=== PATIENT | male | born 1955 | race Caucasian/White ===

== ENCOUNTER 2016-07-11 12:54 | Emergency (ER) | payer BC ==
[2016-07-11 13:05] VITALS: BP 174/80
[2016-07-11] MEDS ORDERED: predniSONE TAB* 20 MG PO ONE (13:14)
--- NOTE | 2016-07-11 13:18 | UC ---
Allergic Reaction HPI - HPI Summary HPI Summary: 61 yo male presents after eating avocodo. He has a allergy Ate it about 12:30 Took benadryl Used to have a epi pen but it He is asymptomatic - History of Current Complaint Chief Complaint: UC Stated Complaint: POSSIBLE ALLERGIC REACTION Time Seen by Provider: 07/11/16 13:09 Hx Obtained From: Patient Severity Currently: None Pain Intensity: 0 Pain Scale Used: 0-10 Numeric - Related Hx Possible Reaction To: Food - Allergies/Home Medications Allergies/Adverse Reactions: Allergies Allergy/AdvReac Type Severity Reaction Status Date / Time Avocado Allergy Rash And Verified 07/11/16 12:58 Itching Latex Allergy Unknown Verified 11/16/14 10:01 Reaction Details Penicillins [PCN] Allergy Unknown Verified 12/03/13 10:28 Reaction Details Home Medications: Home Medications diPHENhydraMINE PO* [Benadryl PO*] 50 mg PO Q6H PRN 07/11/16 [History Confirmed 07/11/16] PMH/Surg Hx/FS Hx/Imm Hx Previously Healthy: Yes Endocrine History Of: Denies: Diabetes Cardiovascular History Of: Reports: Hypertension Denies: Pacemaker/ICD Respiratory History Of: Reports: Asthma - CHILD - Surgical History Surgical History: None - Family History Known Family History: Positive: Hypertension - Social History Alcohol Use: Daily Alcohol Amount: 2 DRINKS OF SCOTCH DAILY Substance Use Type: None Smoking Status (MU): Former Smoker Have You Smoked in the Last Year: No - Immunization History Most Recent Influenza Vaccination: fall 2015 Review of Systems Constitutional: Negative Skin: Negative Eyes: Negative ENT: Negative Respiratory: Negative Cardiovascular: Negative Gastrointestinal: Negative Genitourinary: Negative Motor: Negative Neurovascular: Negative Musculoskeletal: Negative Neurological: Negative Psychological: Negative All Other Systems Reviewed And Are Negative: Yes Physical Exam Triage Information Reviewed: Yes Appearance: Well-Appearing, No Pain Distress, Well-Nourished Vital Signs: Initial Vital Signs Temp 97.4 F 07/11/16 13:01 Pulse 86 07/11/16 13:01 Resp 16 07/11/16 13:01 BP 174/80 07/11/16 13:01 Pulse Ox 99 07/11/16 13:01 Vital Signs Reviewed: Yes Eyes: Positive: Conjunctiva Clear ENT: Positive: Normal ENT inspection, Hearing grossly normal. Negative: Nasal congestion, Nasal drainage, Tonsillar swelling, Tonsillar exudate, Trismus, Muffled/hoarse voice Neck: Positive: Supple, Nontender, No Lymphadenopathy Respiratory: Positive: Lungs clear, Normal breath sounds, No respiratory distress, No accessory muscle use Cardiovascular: Positive: RRR, No Murmur Musculoskeletal: Positive: ROM Intact, No Edema Neurological: Positive: Alert, Muscle Tone Normal Psychological Exam: Normal Skin Exam: Normal Re-Evaluation - Re-Evaluation First Eval Re-Evaluation Time: 13:43 Change: Unchanged - no symptoms Allergic Reaction Course/Dx - Course Course Of Treatment: declines epi pend prescription - Differential Dx/Diagnosis Provider Diagnoses: exposure to allergen. asymptomatic Discharge - Discharge Plan Condition: Stable Disposition: HOME Prescriptions: Prednisone 60 mg PO DAILY #6 tab Patient Education Materials: Food Allergy (ED) Referrals: Chana Leija MD [Primary Care Provider] - If Needed Additional Instructions: recheck if you develop any symptoms
== END 2016-07-11 14:04 | disposition home or self-care (01) ==
LOC: UCEAST 12:54
DX: T78.1XXA Other adverse food reactions, not elsewhere classified, initial encounter (principal); X58.XXXA Exposure to other specified factors, initial encounter; Z91.018 Allergy to other foods; Z88.0 Allergy status to penicillin; Z87.891 Personal history of nicotine dependence
CPT/HCPCS: 99212; G0463; J7512